=== PATIENT | male | born 1955 | race Caucasian/White ===

== ENCOUNTER 2019-12-12 11:46 | Outpatient (CLI) | payer BC, SELFPAY ==
[2019-12-12 12:14] LABS: Basophils Absolute Auto 0.1 K/mm3 (0.0-0.1); Basophils Percent Auto 0.7 % (0.2-1.2); Eosinophils Absolute Auto 0.3 K/mm3 (0-0.3); Eosinophils Percent Auto 3.7 % (0-4.4); Hematocrit 44.4 % (42.0-52.0); Hemoglobin 14.9 g/dL (14.0-18.0); Immature Granulocyte Absolute 0.02 K/mm3 (0.00-0.031); Immature Granulocyte Percent A 0.2 % (0-0.5); Lymphocytes Absolute Auto 1.93 K/mm3 (0.9-3.2); Lymphocytes Percent Auto 21.8 % (18.3-44.2); Mean Corpuscular HGB Conc 33.6 g/dl (32-36); Mean Corpuscular Hemoglobin 29.7 pg (26-34); Mean Corpuscular Volume 88.4 fl (80-100); Monocytes Absolute Auto 0.8 K/mm3 (0.1-0.6); Monocytes Percent Auto 9.5 % (2.6-8.5); Neutrophils Absolute Auto 5.7 K/mm3 (1.3-6.7); Neutrophils Percent Auto 64.1 % (45.5-73.1); Platelet Count Result 226 k/mm3 (150-375); Red Blood Count 5.02 M/mm3 (4.6-6.20); Red Cell Distribution Width 13.5 % (11.5-14.5); White Blood Count 8.9 K/mm3 (4.5-10.0)
[2019-12-12 12:23] LABS: Alanine Aminotransferase 33 U/L (4-50); Albumin Level 4.3 g/dL (3.5-5.1); Alkaline Phosphatase 54 U/L (38-126); Anion Gap 9 mmol/L (8-16); Aspartate Amino Transferase 32 U/L (17-59); Bilirubin,Total 1.1 mg/dL (0.2-1.3); Blood Urea Nitrogen 22 mg/dL (9-20); Calcium 9.6 mg/dL (8.4-10.2); Carbon Dioxide 29 mmol/L (22-30); Chloride 103 mmol/L (98-107); Cholesterol 143 mg/dL (0-200); Estimated Glomerular Filt Rate > 60; Glucose 106 mg/dL (75-110); HDL Direct 37 mg/dL; Potassium 4.3 mmol/L (3.4-5.0); Sodium 141 mmol/L (137-145); Triglycerides 294 mg/dL (<150)
[2019-12-12 12:34] LABS: LDL Cholesterol Direct 61 mg/dL
[2019-12-12 12:54] LABS: Prostate Specific Antigen 0.6 ng/mL (< OR = 4.0)
[2019-12-16 12:41] LABS: Testosterone Free 76.4 pg/mL (35.0-155.0); Testosterone Total 394 ng/dL (250-1100)
== END 2019-12-12 11:47 | disposition home or self-care (01) ==
PROVIDERS: PCP Family Medicine; Visit Provider Family Medicine
DX: E78.2 Mixed hyperlipidemia (principal); I10 Essential (primary) hypertension; Z12.5 Encounter for screening for malignant neoplasm of prostate; N50.89 Other specified disorders of the male genital organs
CPT/HCPCS: 36415; 80053; 80061; 84153; 84402; 84403; 85025

== ENCOUNTER → 2020-04-26 00:50 | Outpatient (CLI) | payer BC, SELFPAY ==
[2020-04-27 00:15] LABS: SARS-CoV-2 RNA PCR Negative
== END ==
PROVIDERS: PCP Family Medicine; Visit Provider Urology
DX: Z01.812 Encounter for preprocedural laboratory examination (principal); Z20.822 Contact with and (suspected) exposure to COVID-19
CPT/HCPCS: C9803; U0003; U0005

== ENCOUNTER 2020-04-30 00:09 | Day surgery (SDC) | payer BC, SELFPAY ==
[2020-04-23 11:11] VITALS: BMI 34.1
[2020-04-30] VITALS (8 sets, daily range): BP systolic 115–140; BP diastolic 73–88; PULSE 55–66; RESP 13–18; TEMP 36.1–36.2; O2SAT 97–100
--- NOTE | 2020-04-30 07:29 | ECG_ITS ---
Measurements Intervals [place] Rate: 57 P: 42 KS: 220 QRS: 14 QRSD: 108 T: 46 QT: 417 QTc: 406 Interpretive Statements SINUS BRADYCARDIA WITH FIRST DEGREE AV BLOCK CONSIDER INFERIOR INFARCT, AGE INDETERMINATE BASELINE ARTIFACT- I, II, V1 ABNORMAL ECG Electronically Signed On 04-30-2020 13:11:51 CDT by Celso Garcia D.O.
[2020-04-30] MEDS: LACTATED RINGERS 1,000 ML 30 ML IV CONT ×2 (12:37→15:16)
[2020-04-30] MEDS: ACETAMINOPHEN 500 MG TABLET 1000 MG PO (12:37)
[2020-04-30 12:54] LABS: Hematocrit 42.1 % (42.0-52.0); Hemoglobin 14.4 g/dL (14.0-18.0)
--- NOTE | 2020-04-30 12:56 | WPDANESEPPF ---
Anes - Initial Pre Proc Eval Procedure: Operation Date: 04/30/20 12:45 Proposed Procedures p Left Hydrocelectomy, - Antione Magana MD s Possible Orchiopexy - Antione Magana MD Date/Time: 04/30/20 12:56 Surgeon: Antione Magana MD Pre Op Diagnosis: Hydrocele Patient Data Age: 64 Gender: M Height: 5 ft 11 in Weight: 111 kg Allergies Allergy/AdvReac Type Severity Reaction Status Date / Time No Known Allergies Allergy Verified 04/23/20 11:12 Home Medications Medication Instructions Recorded Confirmed Type budesonide-formoterol HFA 80 2 puff INHALATION Q12H #3 each 09/05/19 04/23/20 Rx mcg-4.5 mcg/actuation aerosol inhaler acai rizzo extract 500 mg capsule 500 mg PO DAILY 10/18/19 04/23/20 History aspirin 325 mg tablet 325 mg PO DAILY 10/18/19 04/23/20 History biotin 5 mg capsule 5 mg PO DAILY 10/18/19 04/23/20 History budesonide-formoterol HFA 80 2 puff INHALATION Q12H 10/18/19 04/23/20 History mcg-4.5 mcg/actuation aerosol inhaler ferrous sulfate 325 mg (65 mg 325 mg PO DAILY 10/18/19 04/23/20 History iron) tablet fish [id number] C-vit E 2,000 gm PO 10/18/19 12/11/19 History mg-650 mg-12 mg/2.5 g emulsion packt glucosamine 750 wm-[id number]-qxe 750 tablet PO DAILY 10/18/19 04/23/20 History no.7 644 mg-vit J-snkpic-ngqli tablet melatonin 10 mg tablet 10 mg PO DAILY PRN tablet 10/18/19 04/23/20 History multivitamin 1 tablet PO DAILY 10/18/19 12/11/19 History nitroglycerin 0.4 mg sublingual 0.4 mg SUBLINGUAL Q5M PRN 10/18/19 04/23/20 History tablet tadalafil 10 mg tablet 10 mg PO DAILY PRN 10/18/19 04/23/20 History vitamin B comp and C no.3 15 mg-10 1 cap PO DAILY 10/18/19 04/23/20 History mg-50 mg-5 mg-300 mg capsule vitamin E (dl, acetate) 400 unit 450 mg PO DAILY 10/18/19 04/23/20 History capsule pantoprazole 40 mg tablet,delayed 40 mg PO DAILY #90 tablet 10/29/19 04/23/20 Rx release rosuvastatin 40 mg tablet 40 mg PO DAILY #90 tablet 11/08/19 04/23/20 Rx trazodone 50 mg tablet 50 mg PO .QHS #90 tablet 11/12/19 04/23/20 Rx albuterol sulfate 90 mcg/actuation 2 inh INHALATION Q6H PRN #54 g 12/11/19 04/23/20 Rx aerosol inhaler citalopram 40 mg tablet 40 mg PO DAILY tablet 12/11/19 04/23/20 History folic acid 1 mg tablet 1 mg PO DAILY #90 tablet 12/11/19 04/23/20 Rx bupropion HCl 150 mg 24 hr tablet, 150 mg PO QAM #90 tablet 12/18/19 04/23/20 Rx extended release thiamine HCl (vitamin B1) 500 mg 500 mg PO DAILY #90 tablet 12/24/19 04/23/20 Rx tablet allopurinol 100 mg tablet 100 mg PO DAILY #90 tablet 02/04/20 04/23/20 Rx carvedilol 25 mg tablet 25 mg PO Q12H #180 tablet 03/03/20 04/23/20 Rx celecoxib 200 mg capsule 200 mg PO DAILY #14 cap 04/17/20 04/23/20 Rx Laboratory Tests 04/30/20 12:39 Hgb Pending Hct Pending Patient hx anesthesia problems: none Family hx anesthesia problems: none PMFSH Past Medical History Medical History (Updated 12/11/19 @ 16:34 by Alex Pineda MD) Alcohol abuse Depressed mood Essential (primary) hypertension Mixed hyperlipidemia 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 Screening for prostate cancer Scrotal swelling Sleep apnea, unspecified Surgical History Surgical History Status post total hip replacement, right Family History Family History Father Cerebrovascular accident Family history of diabetes mellitus in first degree relative Family history of coronary artery disease Diabetes mellitus Mother Family history of Alzheimer's disease Other Family history of heart disease in male family member before age 55 Family history of osteoarthritis Social History Social History Smoking status: Never smoker Alcohol intake: current Substance use: never Living arrangements: with family
--- NOTE | 2020-04-30 13:46 | WPDHPUPDATE1 ---
History and Physical Update Update Date/Time: 04/30/20 13:46 History and Physical has been reviewed, including an updated exam of the patient. There are NO changes in the patient's condition. Risks, benefits, and alternatives have been discussed and questions answered. Patient agrees to proceed with procedure.
[2020-04-30] MEDS: ceFAZolin 2 GM/D5W 50 ML 2 GM/50 ML BAG IVPB (14:03)
[2020-04-30] MEDS: BUPIVACAINE HCL 0.5% PF 30 ML VIAL INFILTRATE (15:09)
[2020-04-30] MEDS: BACITRACIN OINTMENT 15 GM TUBE 1 APPLIC TOPICAL (15:10)
--- NOTE | 2020-04-30 15:14 | P.OP_ITS ---
Procedure Note - Detailed Date of procedure: 04/30/20 Pre-op diagnosis: Hydrocele Post-op diagnosis: same Procedure performed: Left hydrocelectomy and left orchiopexy Description of procedure: Informed consents obtained. Patient taken the ope rating. He is given preoperative IV antibiotics. He was induced with anesthesia. He was shaved he was prepped and draped normal sterile fashion. Injection of 0.5% Marcaine without epinephrine. A 6cm midline scrotal raphe incision was made and then carefully we dissected the hydrocele sac away from surrounding tissues. The hydrocele was then sharply opened with return of [id number] of straw-colored fluid. We inspected the testicle which was normal in appearance. We then excised a portion of the hydrocele sac and was sent to specimen. We took great care not to injure the spermatic cord and over sewed the edges of the hydrocele sac with 2 0 Vicryl suture. There was good hemostasis at this point. We then felt that the testicle was mobile and performed orchiopexy with 3 0 Ethibond sutures medially laterally and inferiorly through the tunica albuginea of the testicle into the dartos layer. The testicle sat nicely in the inferior scrotum. We then irrigated copiously. We closed the dartos layer with 2 0 Vicryl suture. Deep dermal layer with 3 0 Vicryl suture. Skin was closed with a 3 O chromic horizontal mattress. A sterile dressing was placed. Scrotal support applied and patient was taken to PACU in stable condition Anesthesia: GLMA Surgeon: Antione Magana MD Estimated blood loss (mL): 50 Drains: No Packing: No Pathology: yes Complications: No immediate complications Condition: stable Disposition: PACU
[2020-04-30] MEDS: oxyCODONE HCL (*CRX) 5 MG TAB IR PO (16:33)
== END 2020-04-30 17:08 | disposition home or self-care (01) ==
PROVIDERS: Anesthesiology; PCP Family Medicine; Visit Provider Urology
PROC: (CPT 55040; principal; 2020-04-30 12:45)
PROC: (CPT 55040; 2020-04-30 12:45)
DX: N43.3 Hydrocele, unspecified (principal); I10 Essential (primary) hypertension; E78.2 Mixed hyperlipidemia; G47.30 Sleep apnea, unspecified; E66.9 Obesity, unspecified; Z68.33 Body mass index [BMI] 33.0-33.9, adult
CPT/HCPCS: 55040; 54640; 36415; 85014; 85018; 88302; 93005; A9270; J0690; J1100; J2250; J2405; J2704; J3010; J7120

== ENCOUNTER 2021-11-13 11:15 | Outpatient (CLI) | payer OTHER, SELFPAY ==
--- NOTE | ~2021-11-13 | XR_ITS ---
XR chest 2V 11/13/2021 11:44 Indication: Chronic obstructive pulmonary disease. Procedure: 2 view chest Comparison: No prior studies for comparison. Findings: Status post median sternotomy for CABG. No focal air space disease, pulmonary edema, pleura l effusion or suspected pneumothorax. No acute osseous abnormality. Impression: 1: No acute cardiopulmonary disease. Reviewed, dictated and finalized at location B. Impression: 1: No acute cardiopulmonary disease.
== END 2021-11-13 11:16 ==
PROVIDERS: PCP Family Medicine; Visit Provider Family Medicine
DX: J44.9 Chronic obstructive pulmonary disease, unspecified (principal)
CPT/HCPCS: 71046

== ENCOUNTER 2022-12-04 10:49 | Outpatient (CLI) | payer OTHER, SELFPAY ==
[2022-12-04 11:07] LABS: Hemoglobin 15.7 g/dL (14.0-18.0); Mean Corpuscular HGB Conc 33.4 g/dl (32-36); Mean Corpuscular Hemoglobin 29.6 pg (26-34); Mean Corpuscular Volume 88.7 fl (80-100); Mean Platelet Volume 9.4 fl (7.4-10.4); Platelet Count Result 257 k/mm3 (150-375); Red Cell Distribution Width 13.4 % (11.5-14.5); White Blood Count 8.6 K/mm3 (4.5-10.0)
[2022-12-04 11:18] LABS: Alanine Aminotransferase 41 U/L (6-50); Alkaline Phosphatase 52 U/L (38-126); Anion Gap 10 mmol/L (8-16); Aspartate Amino Transferase 43 U/L (17-59); Bilirubin,Total 1.7 mg/dL (0.2-1.3); Blood Urea Nitrogen 16 mg/dL (9-20); Calcium 9.9 mg/dL (8.4-10.2); Carbon Dioxide 27 mmol/L (22-30); Chloride 104 mmol/L (98-107); Cholesterol 130 mg/dL (0-200); Estimated Glomerular Filt Rate > 60; Glucose 115 mg/dL (65-110); HDL Direct 42 mg/dL; Potassium 4.8 mmol/L (3.4-5.0); Sodium 141 mmol/L (137-145); Triglycerides 167 mg/dL (<150)
[2022-12-04 11:29] LABS: LDL Cholesterol Direct 62 mg/dL
[2022-12-04 11:48] LABS: Prostate Specific Antigen 0.8 ng/mL (< OR = 4.0)
== END 2022-12-04 10:50 | disposition home or self-care (01) ==
LOC: ANHLAB 10:51
PROVIDERS: PCP Family Medicine; Visit Provider Family Medicine
DX: Z12.5 Encounter for screening for malignant neoplasm of prostate (principal); E78.2 Mixed hyperlipidemia; Z13.220 Encounter for screening for lipoid disorders; I10 Essential (primary) hypertension
CPT/HCPCS: 36415; 80048; 80061; 80076; 84153; 84443; 85027; G0103

== ENCOUNTER 2023-06-02 15:12 | Outpatient (CLI) | payer OTHER, SELFPAY ==
[2023-06-02 15:45] LABS: Basophils Absolute Auto 0.1 K/mm3 (0.0-0.1); Basophils Percent Auto 0.7 % (0.2-1.2); Eosinophils Absolute Auto 0.2 K/mm3 (0-0.3); Eosinophils Percent Auto 2.3 % (0-4.4); Hematocrit 46.4 % (42.0-52.0); Hemoglobin 15.3 g/dL (14.0-18.0); Immature Granulocyte Absolute 0.02 K/mm3 (0.00-0.031); Immature Granulocyte Percent A 0.2 % (0-0.5); Lymphocytes Absolute Auto 2.21 K/mm3 (0.9-3.2); Lymphocytes Percent Auto 26.9 % (18.3-44.2); Mean Corpuscular Volume 87.9 fl (80-100); Mean Platelet Volume 9.6 fl (7.4-10.4); Monocytes Absolute Auto 0.9 K/mm3 (0.1-0.6); Monocytes Percent Auto 11.1 % (2.6-8.5); Neutrophils Absolute Auto 4.8 K/mm3 (1.3-6.7); Neutrophils Percent Auto 58.8 % (45.5-73.1); Platelet Count Result 242 k/mm3 (150-375); Red Blood Count 5.28 M/mm3 (4.6-6.20); Red Cell Distribution Width 13.6 % (11.5-14.5); White Blood Count 8.2 K/mm3 (4.5-10.0)
[2023-06-02 16:33] LABS: Erythrocyte Sedimentation Rate 16 mm/hr (0-20)
[2023-06-02 18:30] LABS: Alanine Aminotransferase 39 U/L (6-50); Albumin Level 4.9 g/dL (3.5-5.1); Alkaline Phosphatase 57 U/L (38-126); Anion Gap 11 mmol/L (4-12); Aspartate Amino Transferase 40 U/L (17-59); Bilirubin,Total 1.5 mg/dL (0.2-1.3); Blood Urea Nitrogen 19 mg/dL (9-20); Calcium 9.9 mg/dL (8.4-10.2); Carbon Dioxide 24 mmol/L (22-30); Chloride 106 mmol/L (98-107); Estimated Glomerular Filt Rate > 60; Glucose 97 mg/dL (65-110); Potassium 4.2 mmol/L (3.4-5.0); Sodium 141 mmol/L (137-145); Uric Acid 3.7 mg/dL (3.5-8.5)
[2023-06-02 18:49] LABS: Rheumatoid Factor < 12.0 IU/ML (<12)
[2023-06-02 19:05] LABS: Hemoglobin A1C 5.4 % (<5.7)
== END 2023-06-02 15:13 | disposition home or self-care (01) ==
LOC: ANHLAB 15:13
PROVIDERS: PCP Family Medicine; Visit Provider Family Medicine
DX: M10.9 Gout, unspecified (principal); M25.59 Pain in other specified joint; R73.09 Other abnormal glucose
CPT/HCPCS: 36415; 80053; 83036; 84550; 85025; 85652; 86038; 86039; 86430